=== PATIENT | male | born 1960 | race Caucasian/White ===

== ENCOUNTER 2019-06-11 13:42 | Emergency (ER) | payer BC, SELFPAY ==
[2019-06-11 13:44] VITALS: BP 159/79; PULSE 85; RESP 16; TEMP 36.3; O2SAT 97; BMI 25.0
--- NOTE | 2019-06-11 14:18 | ED.VISSUMM ---
- ER Visit Summary Date of Service: 06/11/19 Chief Complaint: [Back pain] History of Present Illness: The patient is a 59 M [presents to the emergency department with pain in his back that started 2 days ago. Patient states that he was using a drill to put together a cabinet and felt some discomfort in his back at the time the progressively is worsened to the point where he is having a harder time getting around now. Patient denies any pain rating down his legs. He denies any change in bowel or bladder function. He denies weakness the extremity. Patient denies urinary symptoms such as dysuria, urgency, or frequency. Patient has not had any fever. He is not an IV drug user.] Physical Examination: [HEENT-PERRLA, EOMI. Cranial nerves II through XII grossly intact. TMs clear. Mucous membranes moist. No adenopathy. Cardiovascular-regular rate and rhythm without murmur or ectopy Lungs-clear to auscultation, chest wall stable without crepitus or subcu emphysema Abdomen-normoactive bowel sounds, soft, nontender, no rebound or rigidity, no peritoneal signs. Back exam-patient has no tenderness over the thoracic or lumbar spine. Patient does have some tenderness palpation over the right lumbar paraspinal musculature that reproduces his pain. Patient has negative straight leg raises. Deep tendon reflexes are plus 2 out of 4 bilaterally at the patella and Achilles. Patient has normal L5 extension bilaterally. Extremities-intact ?4, normal range of motion, normal pulses, atraumatic] Test Results: [None indicated] Emergency Department Course and Treatment: [Patient did not want to be medicated in the department.] Treatment Plan: [Patient will be given a prescription for Naprosyn, Flexeril, and Xenia. Patient will be given referral to primary care physician health information specialist for no doc.] Disposition: [Discharged home in stable condition] Impression: [Lumbar strain] This note was generated with [employer] dictation software. It may contain incorrect words, spelling, and punctuation that were not noted in review of the chart prior to signing ED Disposition - Plan for ED Patient: Referrals: Care Physician,No Primary [Primary Care Provider] -
--- NOTE | 2019-06-11 14:20 | ED.DEP ---
ED Disposition - Plan for ED Patient: Instructions: Back Sprain/Strain Prescriptions: cycloBENZAPRine HCl [Flexeril] 10 mg PO TID PRN #20 tab PRN Reason: Muscle Spasm Prescription Printed Naproxen [Naprosyn] 500 mg PO BID PRN #20 tab Prescription Printed Hydrocodone Bitart/Apap 5-325 [[place] 5MG-325MG] 1 tab PO Q4H PRN PRN 2 Days #10 tab PRN Reason: Pain Prescription Printed Referrals: Care Physician,No Primary [Primary Care Provider] - Finn Lion MD [STAFF PHYSICIAN] - 5-7 Days
[2019-06-11 14:35] VITALS: BP 111/59; PULSE 78; RESP 16; O2SAT 98
== END 2019-06-11 14:36 | disposition home or self-care (01) ==
LOC: ED 14:29
PROVIDERS: Emergency Provider Emergency Medicine
DX: S39.012A Strain of muscle, fascia and tendon of lower back, initial encounter (principal); X58.XXXA Exposure to other specified factors, initial encounter; Y93.9 Activity, unspecified; Y92.9 Unspecified place or not applicable
CPT/HCPCS: 99282